=== PATIENT | female | born 1970 | race Caucasian/White ===

== ENCOUNTER 2019-07-20 23:06 | Emergency (ER) | payer SELFPAY ==
[2019-07-20] MEDS ORDERED: Ketorolac Tromethamine 30 MG/ML VIAL ONE (23:35)
--- NOTE | 2019-07-20 23:48 | RAD ---
Exam:Right hand 3 views HISTORY: Pain. Injury. COMPARISON: None FINDINGS: No fracture, cortical irregularity or periosteal reaction. Preserved joint spaces. IMPRESSION: No fracture.
== END 2019-07-20 23:48 | disposition home or self-care (01) ==
LOC: NAV ERS 23:06
DX: S60.222A Contusion of left hand, initial encounter (principal); M25.50 Pain in unspecified joint; F17.210 Nicotine dependence, cigarettes, uncomplicated
CPT/HCPCS: 96372; J1885

== ENCOUNTER 2021-01-04 21:04 | Emergency (ER) | payer OTHER, BC | END 2021-01-04 22:09 | disposition home or self-care (01) | LOC: NAV ERS 21:04 | DX: S09.90XA Unspecified injury of head, initial encounter (principal); F17.210 Nicotine dependence, cigarettes, uncomplicated; W01.198A Fall on same level from slipping, tripping and stumbling with subsequent striking against other object, initial encounter | CPT/HCPCS: 70450 ==

== ENCOUNTER 2021-03-11 23:42 | Emergency (ER) | payer BC ==
[2021-03-12 00:16] LABS: Bilirubin Small (Negative); Blood, Urine Negative (Negative); Clarity Clear (Clear); Glucose, Urine (Dipstick) Negative (Negative); Ketone, Urine 15 mg/dL (Negative); Leukocyte Negative (Negative); Nitrite Negative (Negative); Protein, Urine (Dipstick) Negative (Neg-Trace); Specific Gravity, Urine 1.025 (1.005-1.030); Urobilinogen 0.2 mg/dL (Less than 2); pH, Urine 5.5 (5.0-9.0)
== END 2021-03-12 02:03 | disposition home or self-care (01) ==
LOC: NAV ERS 23:42
DX: K59.00 Constipation, unspecified (principal); F17.200 Nicotine dependence, unspecified, uncomplicated
CPT/HCPCS: 74176; 81003

== ENCOUNTER 2022-09-11 03:12 | Emergency (ER) | payer BC ==
[2022-09-11] MEDS ORDERED: Naproxen 500 MG TAB ONE (03:46)
[2022-09-11] MEDS ORDERED: Bacitracin 1 PK ONE (03:46)
== END 2022-09-11 03:49 | disposition home or self-care (01) ==
LOC: NAV ERS 03:12
DX: S00.81XA Abrasion of other part of head, initial encounter (principal); M25.562 Pain in left knee; F17.210 Nicotine dependence, cigarettes, uncomplicated; W22.8XXA Striking against or struck by other objects, initial encounter
CPT/HCPCS: 99283